=== PATIENT | female | born 1940 | race Caucasian/White ===

== ENCOUNTER → 2023-09-13 | Outpatient (CLI) | payer MEDICARE, SELFPAY ==
--- NOTE | 2023-09-13 17:40 | CT_ITS ---
CT BILATERAL LOWER EXTREMITY WITH 3-D IMAGING CLINICAL INDICATION: OSTEOARTHRITIS / HAYDER PROTOCOL PREP FOR RIGHT HIP REPLACEMENT TECHNIQUE: Axial CT images of the bilateral lower extremity (including bilateral hips and bilateral knees), and was performed without IV contrast material. Coronal and sagittal reformats were provided. RADIATION DOSAGE (If Supplied By Facility): CTDIvol = ( 13.74 ) mGy, DLP = ( 772.95 ) mGycm COMPARISON: No relevant prior comparison study available FINDINGS: Bones: There is severe degenerative disc disease at L4-5 with grade I anterolisthesis of L4 on L5. There is moderate to severe degenerative arthrosis of the right hip joint with joint space narrowing, marginal osteophyte formation, and subchondral cyst formation. There is mild degenerative arthrosis of the left hip joint with small subchondral cyst formation in the left acetabulum. There is mild pubic symphysis arthrosis. Unremarkable knee joints bilaterally. Osseous structures are intact without evidence of fracture or dislocation. No lytic or blastic osseous masses. Soft Tissues: There is mild chronic sigmoid diverticulosis without acute diverticulitis. The deep soft tissue structures are otherwise unremarkable. The superficial soft tissues are unremarkable without evidence of edema, hematoma, or foreign body. CT/Extremity Lower without Contra IMPRESSION: Moderate to severe degenerative arthrosis of the right hip joint. Mild degenerative arthrosis of the left hip joint. Electronically Signed: Juan Jose Chavez MD at 8:17 EDT ,
== END | disposition home or self-care (01) ==
LOC: CT 17:37
PROVIDERS: PCP Family Medicine; Visit Provider Student in an Organized Health Care Education/Training Program
DX: M16.11 Unilateral primary osteoarthritis, right hip (principal)
CPT/HCPCS: 73700

== ENCOUNTER 2023-09-28 14:07 | Observation (INO) | payer MEDICARE, SELFPAY ==
--- NOTE | 2023-09-05 10:25 | EKG12_ITS ---
Test Reason : PRE OP Blood Pressure : / mmHG Vent. Rate : 062 BPM Atrial Rate : 062 BPM P-R Int : 144 ms QRS Dur : 072 ms QT Int : 380 ms P-R-T Axes : 011 -07 037 degrees QTc Int : 385 ms Normal sinus rhythm Normal ECG Confirmed by Lalo Osullivan ([id number]), international editorial producer JENNIFER JONES ([id number]) on 09/06/2023 5:49:28 AM Referred By: Radha Plunkett Confirmed By:Lalo Osullivan
[2023-09-05 10:33] LABS: Absolute Lymphocyte Count 2.11 X10^3/uL (0.83-4.51); Absolute Neutrophil Count 3.1 X10^3/uL (2.0-7.7); Basophil# 0.08 X10^3/uL; Basophil% 1.3 % (0-1); Eosinophil# 0.15 X10^3/uL; Eosinophils% 2.5 % (0-5); Hematocrit 44.9 % (37-47); Hemoglobin 13.8 g/dL (12.0-15.0); Lymphocyte # 2.11 X10^3/ul (0.83-4.51); Lymphocyte % 35.4 % (19-41); Mean Corp Hgb Conc 30.7 g/dL (32-36); Mean Corpuscular Hgb 28.5 pg (27.0-32.0); Mean Corpuscular Volume 92.8 fL (81-99); Mean Platelet Vol. 10.5 fl (6.2-12.0); Monocyte# 0.56 X10^3/uL; Monocyte% 9.4 % (0-10); NRBC Flagged by Analyzer 0 % (0-5); Neutrophil # 3.05 X10^3/uL (2.7-7.7); Neutrophil % 51.2 % (47-70); Platelet Count 201 K/mm3 (150-450); RBC Distribution Width CV 12.3 % (11.6-14.6); RBC Distribution Width SD 41.7 fl (35.1-43.9); Red Blood Count 4.84 M/mm3 (4.2-5.4)
[2023-09-05 14:44] LABS: Magnesium 2.4 mg/dL (1.6-2.6)
[2023-09-05 14:45] LABS: Albumin, Serum 3.5 g/dL (3.2-5.0); Anion Gap 2 (5-15); BUN 21 mg/dL (7-18); BUN/Creat Ratio 17.9 RATIO (10-20); Calcium,Total 9.8 mg/dL (8.5-10.1); Chloride 109 mmol/L (98-107); Creatinine, Serum 1.17 mg/dL (0.55-1.02); EST Glomerular Filtration Rate 47 mL/min (>60); Est Glom Filt Rate - Afr Amer 57 mL/min (>60); Glucose 102 mg/dL (74-106); Potassium 4.4 mmol/L (3.5-5.1); Sodium Level 139 mmol/L (136-145)
--- NOTE | 2023-09-19 15:51 | CASEMGMT ---
Social Work - Discharge Planning Received call from patient asking to speak to social media specialist about discharge planning after hip replacement surgery in September. Patient stated on message that patient lives alone and will need to go somewhere for in-house medical care. Returned call to patient at [phone]. Message left for patient to call this commercial real estate underwriter back to further discuss. -NILES Mcnamara
--- NOTE | 2023-09-20 11:18 | CASEMGMT ---
Social Work - Discharge Planning Received call back from patient regarding discharge planning. Patient reports to have 3 friends who ave had hip replacements and all 3 have informed patient that patient will not be able to be alone the first couple of weeks post-op. Patient reports immediately called the insurance to find out about options and was told to have benefits for SNF rehab, but that hospital must set this up. Patient reports has looked around at area SNF's and wants to be in [facility], as this will be the closest for local family to be involved. Patient reports to have a son, who is involved, but works 10.5 hours days, so will not be available to be at home and help patient. Patient continued to emphasize that does not have anyone at home to help patient in the days or weeks following surgery. Educated patient that SNF arrangements cannot be done until after the procedure, as will need clinical information including PT/OT evaluate to determine level of care need. SNF choices, for short term rehab: 1. [facility] 2. [facility]. Plan: Care Management team to follow and assist as needed. Patient reports slated for surgery on 09.28.23. -NILES Mcnamara
--- NOTE | 2023-09-20 12:11 | CASEMGMT ---
Care Management - Discharge Planning Called [facility] and spoke with Linda in surgical scheduling to update to conversation with patient regarding discharge planning. Transferred to clinical coordinators at same office and left voice message of update, as well as this feature writer's name/number should they have questions. Plan: Patient's intended plan/goals for care at discharge - short term SNF for rehab. Choices identified: 1. [facility], 2. [facility]. -NILES Mcnamara
[2023-09-28] VITALS (16 sets, daily range): BP systolic 100–163; BP diastolic 50–97; PULSE 59–83; RESP 14–18; TEMP 35.7–36.6; O2SAT 94–100; BMI 24.9
[2023-09-28] MEDS: Gabapentin 600 MG Tablet PO (11:38)
[2023-09-28] MEDS: Magnesium 1 GM over 15 mins IV (11:38)
[2023-09-28] MEDS: Lactated Ringers 1,000 ML 999 ML IV ×2 (11:38→14:00)
[2023-09-28] MEDS: Acetaminophen 500 MG Tablet 1000 MG PO ×2 (11:38→21:31)
[2023-09-28] MEDS: Cefazolin 2 GM in 0.9% Normal Saline (100mL Bag) 100 ML IV (11:52)
[2023-09-28] MEDS: TXA 1000mg in NS100 100ml (IVPB at Incision) 660 MG IV (12:10)
[2023-09-28 13:13] LABS: Bedside Glucose 110 mg/dL (74-106)
[2023-09-28] MEDS: TXA 1000mg in NS100 100ml (IVPB at Closure) 660 MG IV (13:20)
[2023-09-28] MEDS: Joint Pain Solution (NO KETOROLAC) IV (13:45)
--- NOTE | 2023-09-28 14:05 | HIP_PTH ---
PATIENT: SHWETHA CLAYTON LOC: MS3 U#:[id number] AGE/SX: 83/F ROOM: KY318 RE09/28/[address]: Dr. Anirudh Givens DO : 1940 BED: 1 DIS: 09/30/2023 SPEC #: [id number] RECD: 09/29/23 08:32 STATUS: STACY ANDREWS #: [id number] MARYJO: 09/28/23 14:[address]: Anirudh Givens DEPT: SURGICAL PATHOLOGY RECD BY: Honey Alfaro ENTERED: 09/29/23 10:07 SP TYPE: TOTAL HIP OTHR DR: DO Dr. Radha Lizama MD Dr. Prakash Chand, MD Tissues: Hip, NOS Procedures: Decalcification bone/plaque Surgery Specimen Level IV HEADER OPERATION: ERAS, total hip replacement PRE-OP DIAGNOSIS: Unilateral primary osteoarthritis, right hip, pain right hip TISSUE SUBMITTED: Right hip bone and tissue MICROSCOPIC DIAGNOSIS Right hip bone and soft tissue, total hip replacement/resection: Femoral head with degenerative osteoarthritic changes. CHARY: 10/04/23 MICROSCOPIC DESCRIPTION Slides are reviewed. GROSS DESCRIPTION Received is one container labeled with the patient's name and designated bone and soft tissue right hip. The specimen consists of a roldan femoral head and detached fragments of bone and bone reamings. Bone fragments and reamings measure 7.0 x 5.0 x 1.0cm. The femoral head measures 4.5 x 4.5 x 4.5 cm. The articular surface displays prominent osteophyte formation, eburnation and bone erosion. Supervisor Cell Maintenance sections are submitted in three cassettes as follows: 1&2 - femoral head, 3 - bone reamings. / 09/29/23 TC:5 CPT: 12327, 65222
--- NOTE | 2023-09-28 14:08 | PCM.OPRPT ---
Report of Operation Date of Procedure: 09/28/23 Description of Surgical Findings:: Preoperative diagnosis: Right hip primary osteoarthritis Postoperative diagnosis: Right hip primary osteoarthritis Procedure: Robotic arm assisted right total hip arthroplasty Surgeon: Anirudh Givens DO Manager Nc: Zuleyma Alcaraz PA-C Anesthesia: General endotracheal Marine Meteorologist: Ricki Capps CRNA Complications: None apparent Drains: None Estimated blood loss: 200 cc Urinary output: none recorded IV fluids: 1200 cc crystalloid Specimens: Femoral head Surgical implants: [place] Accolade two 127 degree neck angle hip stem size # 5, Biolox delta ceramic V 40 femoral head 36 mm outer diameter + 0 mm neck length, [place] Trident X3 standard polyethylene insert, Trident 2 TriTanium cluster hole acetabular shell 50 mm diameter Indications: This is an 83-year-old female seen in the outpatient setting for right hip pain. X-rays revealed severe right hip osteoarthritis. She failed oral cnur-knd-dbpfeer analgesics including NSAIDs and Tylenol, activity modification. I recommended surgical intervention the form of right total hip arthroplasty. I reviewed the procedure with the patient, its risk, benefits, alternatives. Risks included but were not limited to bleeding, infection, loss of life or limb, risk of anesthesia, neurovascular injury, persistent pain, instability, need for additional surgery, failure of orthopedic hardware, loosening, osteolysis, need for assistive devices long-term, leg length discrepancy. Patient expressed understanding wish to proceed with surgery. Description of procedure: I greeted the patient in same-day surgery holding area the day of surgery. He was identified by name, medical record number, and date of . All questions were answered to patient satisfaction. The operative extremity was marked with a surgical marker. Informed consent was confirmed with the patient. At time of her procedure, patient was brought the operative suite and positioned supine a sterile operating table. General anesthesia was induced and endotracheal tube placed. Patient was then positioned in a lateral decubitus position with the right side up. An axillary roll was placed under the patient's left axilla. The left fibular head was free. We then prepped and draped the right lower extremity in normal, sterile orthopedic fashion. Prior to the procedure, the [facility] plan was reviewed and appeared appropriate based on the patient's CT scan and anatomy. We performed a timeout with all parties in attendance in agreement with the side, site, and operation to be performed. No concerns were voiced and would like to proceed. 1 g TXA IV as well as 2 g Ancef was administered prior to the incision by anesthesia staff. 1 g TXA IV was administered at time of closure additionally. I first elected to place our pelvic array with a curvilinear incision over the iliac crest just posterior to the ASIS. I bluntly dissected down the level of the periosteum. I then drilled 3 intracortical pins with excellent purchase. Pelvic array was then assembled and positioned appropriately. I then turned my attention to the hip. A standard posterior lateral incision was made curvilinear over the posterior lateral hip, centered on the tip of the greater trochanter. Full-thickness skin incision was made, approximately 12 cm in length. I sharply dissected down the level of the fascia becki. Fascia becki was then incised in line with the incision. I bluntly dissected through the raphae of the gluteus maggie. Femoral checkpoint was placed at this point. We then registered her femoral anatomy prior to dislocating the hip. I then internally rotated the hip. Limited gluteal bursectomy was performed to identify the short external rotators. A Cobra retractor was placed in his gluteus medius. Short external rotators were taken down with Bovie cautery and tagged for later repair with #2 Ethibond suture. This identified the underlying capsule. A hockey-stick shaped capsulotomy was made over the femoral neck carried posteriorly to the acetabular labrum. Labrum was released and the hip was dislocated. I then marked a standard femoral neck cut 1 fingerbreadth above the lesser trochanter. Sagittal saw was used to carefully cut the femoral neck. Femoral head was removed and examined and appeared benign. It was sent to pathology per hospital policy. I then turned my attention to the acetabulum. Cobra retractors were placed anterior and posteriorly. Self-retaining retractor was placed superiorly. Acetabular labrum was excised with a long handled knife. Acetabular pulmonary was excised with Bovie cautery. Hemostasis was excellent at this point. I then registered the acetabulum with the [employer] robot successfully. I then brought in the Darrell robot with the acetabular reaming arm to a size 50. This was reamed and the planned position to the planned depth. Reamer was then removed. There was excellent bleeding bone at the base and excellent remaining anterior posterior vigil of the acetabulum. 50 mm acetabular component was selected for and attached to the retail assistant arm of the robot. I placed the acetabular component near planned position before attaching to the robot. The robot then held the cuff in position while I impacted it to an appropriate depth. The acetabular cup was then removed from the robotic arm. It had excellent rim fit. I then selected a standard polyethylene liner and impacted this per woodworking machine setter recommendations. I then turned my attention to the femur. Box chisel was then utilized to gain access to the femoral canal. Canal finder was placed. Sequential broaches were used and press-fit manner. A final size 5 achieved excellent vertical and rotational stability. We then trialed with a 127 degree hip stem as templated. A standard length neck trial was used. This trial achieved excellent stability and reproduction of leg lengths. Trials were then removed. We copiously irrigated the wound with normal saline solution, Betadine solution, and irrisept solution. A size 3 stem was then impacted with excellent fixation. Final head was then impacted over clean, dry [place]ley taper neck. Final reduction was performed. A posterior capsular repair was performed with #2 Ethibond suture and bone tunnels, as well as the short external rotator repair. Femoral checkpoint was removed. Pelvic array pins were removed. IT band was closed watertight with #1 strata fix suture. Deeper fascial layers were closed with 0 Vicryl suture in interrupted fashion. Subcutaneous layers were reapproximated with 2-0 Vicryl suture and skin reapproximated with running subcuticular 3-0 strata fix and skin glue. Pelvic array incision was closed with buried 2-0 Vicryl suture and skin glue.. A silver dressing was applied. Patient tolerated procedure well without complication. He was positioned back in the supine position on his hospital bed. He was transferred to PACU in stable condition. A pillow was placed between the patient's leg to be present while she is in bed. Need for skilled election assistant: Zuleyma Alcaraz PA-C was critical to the outcome of the case. During the course of the procedure the physician election assistant played a vital role. Her intimate knowledge of my steps in the procedure aided in safe and expedient completion of the procedure. The PA played a vital role in positioning particularly in obtaining the appropriate positioning. The PA was also vital in the retraction of soft tissues during the exposure and projecting vital structures. The PA was also vital and protecting soft tissues during times of bony cuts. She also played a vital role in closure with my direct supervision. The PA was also important during reduction and dislocation of the joint and trials intraoperatively. Post Operative Plan: Patient will be placed in observation overnight given her age and the fact that she lives at home alone. I suspect patient would benefit from intermediate facility placement due to her limited help at home and advanced age. We will have physical therapy evaluate the patient and begin the process of placement with professor of social work. Weightbearing: Weightbearing as tolerated right lower extremity, posterior hip precautions. Pillows between legs while in bed Antibiotics: Ancef 1 g every 8 hours x 3 doses DVT Prophylaxis: Aspirin 81 mg twice daily to start tomorrow Mcmanus: None Dressing: Maintain silver dressing x 5 days X-Rays: PACU x-rays were reviewed demonstrated well-positioned right total hip arthroplasty implant. Follow-up 2-week x-rays in the office. Follow-up: 2 weeks in my office as scheduled
--- NOTE | 2023-09-28 14:15 | RAD_ITS ---
STUDY: X-RAY - PELVIS AND RIGHT HIP REASON FOR EXAM: Female, 83 years old. Post Op -- AP both hips on single ed/lateral of op hip PACU TECHNIQUE: 2 views of the pelvis and hip. COMPARISON: None. FINDINGS: There is a non-specific bowel gas pattern. Normal visualized soft tissue structures. Total hip arthroplasty on the right. Normal bilateral iliac wings, sacroiliac joints and visualized sacrum. Normal bilateral superior and inferior pubic rami. Normal pubic symphysis. Normal bilateral ischial tuberosities. Normal visualized femoral head. Normal acetabulum. Normal hip joint. RAD/Hip Min 2 Views (Portable) IMPRESSION: Right total hip arthroplasty Electronically Signed: Emir Pagan MD at 17:18 EDT ,
[2023-09-28 14:41] LABS: Bedside Glucose 218 mg/dL (74-106)
[2023-09-28] MEDS: Insulin Lispro 100 UNIT/ML INSULN.PEN SC ×2 (14:50→21:31)
[2023-09-28] MEDS: Lactated Ringers 1,000 ML 125 ML IV (15:01)
--- NOTE | 2023-09-28 19:36 | CON.PCM.HO_ITS ---
Assessment & Plan Assessment/Plan (1) Primary osteoarthritis: PLAN: Plan 83-year-old female is being admitted under orthopedic surgery after elective right hip surgery. Medicine consulted for perioperative management 1. Right hip primary osteoarthritis status post robotic assisted right total hip arthroplasty. Patient is doing good, had surgery completed in afternoon. Pain control, and incentive spirometry. PT and OT. DVT prophylaxis as per discretion of orthopedic surgery. Bladder scan every 4 hourly and if needed a straight cath. Stool softener/laxative as needed for constipation. To monitor CBC and BMP tomorrow morning 2. Hypertension: Blood pressure is in normal range. On lisinopril 10 mg daily continued. Twelve-lead EKG normal sinus rhythm. 3. Diabetes mellitus type 2: Most recent, A1c 6.0 on 09/05/2023. Glucose well- controlled. Hold glipizide. Accu-Chek before meals and at bedtime insulin coverage Humalog sliding scale. 4. DVT prophylaxis: As per discretion of orthopedic surgeon bilateral SCDs. Aspirin 81 mg twice daily ordered by orthopedic surgeon. HPI Consult Data Date of Consult: 09/28/23 HPI Narrative Reason for Consultation: Perioperative medical management HPI Narrative: SHWETHA CLAYTON, is a 83 F who was admitted after robotic arm elective right hip total hip arthroplasty. Patient has primary right hip osteoarthritis for about 10 years failed medical management. Her pain is well-controlled. She had a bowel movement in the morning today prior to surgery. She does not have Mcmanus catheter. Denies chest pain shortness of breath or any acute illness or fever. Patient denies chronic heart disease including CAD CHF A-fib or valvular heart disease. Denies chronic lung disease or smoking history. Patient has diabetes mellitus type 2 on glipizide 2.5 mg daily and last A1c 6.0 on 09/05/2023. History of hypertension on lisinopril 10 mg daily Patient has chronic diverticulosis, on calcium carbonate and folic acid. Twelve-lead EKG reviewed and is normal sinus rhythm 62 bpm. QTc 385 ms [facility] Medical History Ambulates with cane Arthritis Diverticulosis History of stress test (~2006) Leg cramps Non-smoker Post-menopausal Wears glasses Home Medications calcium carbonate 600 mg-vitamin D3 5 mcg (200 unit) tablet (Calcium 600 + D(3)) 1 tab PO BID 08/30/23 [History Last Taken 09/27/23] cinnamon bark 500 mg capsule (Cinnamon) 1,000 mg PO BID 08/30/23 [History Last Taken 09/27/23] coenzyme Q10 200 mg capsule (Co Q-10) 200 mg PO DAILY 08/30/23 [History Last Taken 09/27/23] folic acid 400 mcg tablet 400 mcg PO DAILY 08/30/23 [History Last Taken 09/27/23] glipizide 2.5 mg tablet, extended release 24 hr 2.5 mg PO DAILY 08/30/23 [History Last Taken 09/27/23] lisinopril 10 mg tablet 10 mg PO DAILY 08/30/23 [History Last Taken 09/28/23 10:00] omega-3 339 mg-dha and epa 314 mg-fish and krill oil 500 mg capsule (Jo rodriguez 4-in-1) 1 cap PO DAILY 08/30/23 [History Last Taken 09/27/23] Allergy/AdvReac Type Severity Reaction Status Date / Time Iodinated Contrast Media Allergy Severe Rash Verified 09/28/23 12:04 iodine Allergy Severe Rash Verified 09/28/23 12:04 naproxen Allergy Severe Anaphylaxis Verified 09/28/23 12:04 Sulfa (Sulfonamide Allergy Severe Anaphylaxis Verified 09/28/23 12:04 Antibiotics) triamcinolone [From Kenalog] Allergy Severe Anaphylaxis Verified 09/28/23 12:04 egg Allergy Intermediate Rash Verified 09/28/23 12:04 Surgical History History of ankle surgery (~1959) History of breast surgery (~2002) History of cataract extraction with lens replacement (~2021) History of cholecystectomy (~2006) History of D&C (~1974) History of hand surgery Social History Smoking Status: Never smoker ROS ROS Narrative Constitutional: denies chronic fatigue and weakness. No fever. HEENT: Reports systems reviewed and no addt'l complaints, except as documented Respiratory/Chest: No COPD or smoking history. No acute shortness of breath or respiratory distress or wheezing. CVS: Denies acute chest pain pressure or tightness. No chronic cardiac disease Gastrointestinal: Denies coffee ground emesis, hematemesis or vomiting Genitourinary: Denies burning urination or new urinary tract symptoms Musculoskeletal: Denies acute joint pain or limited range of motion. No acute injury. Right primary osteoarthritis Neurologic: Denies seizure-like symptoms. No acute strokelike symptoms skin: No ulcer. No rash Endocrinology: Reports systems reviewed and no addt'l complaints, except as documented Hematologic/Lymphatic: Reports systems reviewed and no addt'l complaints, except as documented Rest 14 ROS are negative except as mentioned in HPI Physical Exam Narrative General: Alert, Oriented x3, Cooperative HEENT: Atraumatic, PERRLA, EOMI, Normocephalic Oral: Oral mucosa moist no Gingival or Mucosal Lesions/ Ulcerations Neck: Supple, No JVD, Negative Carotid Bruits Chest wall/Lungs: Air entry equal in bilateral lung bases. No crepitation/rhonchi Cardiovascular: Regular rate, Regular Rhythm, Normal S1, Normal S2, No M/G/R Abdomen: Bowel Sounds Present, Soft, Non Tender, Non-Distended : No dysuria. No renal angle tenderness. No suprapubic tenderness. Extremities: No edema, Capillary Refill Less than 3 Seconds Skin: Right hip surgical dressing is dry. No hematoma or bruise noticed. Musculoskeletal: Mild tenderness on deep palpation expected after surgery. ROM not evaluated due to surgery to Neurological: Cranial nerves II-XII grossly intact, DTR 2+/4. No acute focal n eurological deficit. Psych/Mental Status: Normal Affect, Appropriate. Lab / Micro Data 09/05/23 10:12 09/05/23 10:12 Labs: Laboratory Results - last 24 hr 09/28/23 11:26: POC Glucose 110 H 09/28/23 14:16: POC Glucose 218 H Imaging Radiology Impression Hip X-Ray 09/28/23 14:15 IMPRESSION: Right total hip arthroplasty Electronically Signed: Emir Pagan MD at 17:18 EDT , Charges/Coding Visit Charges Inpatient E&M: 24075 Init Hosp L3
[2023-09-28] MEDS: Cefazolin 1 GM/50 ML BAG IV (20:00)
[2023-09-28] MEDS: Aspirin 81 MG TAB.CHEW PO (21:31)
[2023-09-28] MEDS: Senna/Docusate Sodium 1 Tablet 2 TABLET PO (21:31)
[2023-09-28] MEDS: Ondansetron 4 MG/2 ML Vial IV (21:34)
[2023-09-28 21:59] LABS: Bedside Glucose 210 mg/dL (74-106)
[2023-09-29 00:56] VITALS: BP 145/58; PULSE 70; RESP 16; TEMP 36.6; O2SAT 100
[2023-09-29] MEDS: Cefazolin 1 GM/50 ML BAG IV (03:54)
[2023-09-29 04:56] VITALS: BP 137/72; PULSE 69; RESP 16; TEMP 36.6; O2SAT 96
[2023-09-29] MEDS: 0.9% Saline Lock 10 ML Syringe IV ×2 (05:28→21:49)
[2023-09-29] MEDS: Acetaminophen 500 MG Tablet 1000 MG PO ×3 (05:28→21:54)
[2023-09-29] MEDS: Insulin Lispro 100 UNIT/ML INSULN.PEN SC ×4 (06:07→21:56)
[2023-09-29 06:28] LABS: Bedside Glucose 199 mg/dL (74-106)
[2023-09-29 07:09] LABS: Hematocrit 37.4 % (37-47); Hemoglobin 12.2 g/dL (12.0-15.0); Mean Corp Hgb Conc 32.6 g/dL (32-36); Mean Corpuscular Hgb 29.8 pg (27.0-32.0); Mean Corpuscular Volume 91.4 fL (81-99); Mean Platelet Vol. 10.6 fl (6.2-12.0); Platelet Count 203 K/mm3 (150-450); RBC Distribution Width CV 12.1 % (11.6-14.6); RBC Distribution Width SD 40.6 fl (35.1-43.9); Red Blood Count 4.09 M/mm3 (4.2-5.4); White Blood Count 13.5 K/mm3 (4.4-11.0)
[2023-09-29 08:00] VITALS: BP 106/58; PULSE 78; RESP 16; TEMP 36.6; O2SAT 98
[2023-09-29 08:07] LABS: Anion Gap 7 (5-15); BUN 22 mg/dL (7-18); BUN/Creat Ratio 19.6 RATIO (10-20); Calcium,Total 8.3 mg/dL (8.5-10.1); Chloride 103 mmol/L (98-107); Creatinine, Serum 1.12 mg/dL (0.55-1.02); EST Glomerular Filtration Rate 49 mL/min (>60); Est Glom Filt Rate - Afr Amer 60 mL/min (>60); Estimated Creatinine Clearance 34.85 ml/min; Glucose 213 mg/dL (74-106); Potassium 4.6 mmol/L (3.5-5.1); Sodium Level 132 mmol/L (136-145)
[2023-09-29] MEDS: Folic Acid 1 MG Tablet 0.5 MG PO (08:23)
[2023-09-29] MEDS: Senna/Docusate Sodium 1 Tablet 2 TABLET PO ×2 (08:23→21:54)
[2023-09-29] MEDS: Aspirin 81 MG TAB.CHEW PO ×2 (08:23→21:53)
--- NOTE | 2023-09-29 10:15 | CASEMGMT ---
PALOMO DALE Assessment: Face to Face with pt for initial transition planning/care coordination assessment. PALOMO DALE introduced self and role at [facility], pt voices understanding and consents to assessment. Pt is A&O x4 and answers all questions appropriately at this time. Pt sitting up in chair in no distress. Pt just finished working with therapy who states pt is contact guard, they plan to work with pt on steps this afternoon. Care providers, pharmacy, and demographics verified/updated. Admitting Dx: R total hip arthroplasty PCP:Kiarra Specialists:beata Givens Preferred Pharmacy: [facility] Insurance: [facility] Medicare Advantage Prescription Benefit: yes LNOK: Norman Barclay, son Living Arrangements: Pt lives alone in a single story home with 5 steps to enter with a rail. Pt reports she was I in ADL's and IADL's at home prior to surgery. Pt states her son can assist but he works 10-11 hours per day and is home by 3pm. She states she has a sister but her sister is caring for her who had a stroke and cannot assist. Pt denies having restorationist members who can assist as they have their own lives. Pt reports she cannot return home and would like to go to [facility] or [facility]. Pt aware her insurance will need to approve this stay. She states she can pay privately if it is $200/day. Transportation: Pt drives self prior to hospitalization but states she has no plan for post surgery. DME:built in shower seat, FWW, cane, BGM with sufficient supply of strips and lancets. HHC/SNF: Denies hx of Pt states no further concerns/needs. Updated SW on pt request to try for SNF, although she may not get approved. Discussed other options with pt. She states she does not want HHC as that is not the best therapy. She states she is scheduled for OP therapy on October 12 at 3:30pm with Sarah Alcazar. CM to follow. Advised pt to ask CM if any further question/concerns/needs arise, voices understanding. Pt Goal: SNF Plan: DEBORAH Gonzales RN, CM
--- NOTE | 2023-09-29 11:07 | CASEMGMT ---
Discharge Planning A list of?SNF providers including quality and resource use data and consistent with the patient's preferred geographic region, medical needs, and insurance network was created in [employer] Guide.? This list was provided to the SW. Chani Silva Discharge Planning Asst.
[2023-09-29 11:36] LABS: Bedside Glucose 288 mg/dL (74-106)
--- NOTE | 2023-09-29 11:44 | PCM.PN.HOSP ---
Reason for Visit Reason for Visit: Diagnoses Primary osteoarthritis, unspecified site (09/28/23) Encounter for other preprocedural examination (09/28/23) Subjective Subjective Patient had right total hip arthroplasty done yesterday morning with Dr. Givens. Medicine consulted postoperatively for medical management. No acute events overnight. Saw patient at the bedside this morning. She was up and walking with a 4-point walker and working with physical therapy. She denied any significant hip pain and was feeling okay with ambulation. She did note she lives alone and despite feeling well she is concerned about going home and would like to go to a nursing facility on discharge. No other acute concerns at this time. Objective Data Objective Data Vital Signs: Vital Signs Temp Pulse Resp BP Pulse Ox O2 Del Method O2 Flow Rate 97.8 F 78 16 106/58 L 98 Room Air 2 09/29/23 08:00 09/29/23 08:00 09/29/23 08:00 09/29/23 08:00 09/29/23 08:00 09/29/23 08:00 09/28/23 20:56 Oxygen Flow Rate (L/min) 2 Oxygen Delivery Method Room Air Weight: 68 kg Body Mass Index (BMI) 24.9 Intake & Output: Intake and Output for Last 24 Hours 09/27/23 09/28/23 09/29/23 23:59 23:59 23:59 Intake Total 2729.92 / 2729.92 249 / 249 Balance 2729.92 / 2729.92 249 / 249 Lab / Micro Data 09/29/23 06:23 09/29/23 06:23 Labs: Laboratory Results - last 24 hr 09/28/23 11:26: POC Glucose 110 H 09/28/23 14:16: POC Glucose 218 H 09/28/23 21:11: POC Glucose 210 H 09/29/23 06:06: POC Glucose 199 H 09/29/23 06:23: WBC 13.5 H, RBC 4.09 L, Hgb 12.2, Hct 37.4, MCV 91.4, MCH 29.8, MCHC 32.6, RDW Std Deviation 40.6, RDW Coeff of Ron 12.1, Plt Count 203, MPV 10.6, Sodium 132 L, Potassium 4.6, Chloride 103, Carbon Dioxide 22.0, Anion Gap 7, BUN 22 H, Creatinine 1.12 H, Estim Creat Clear Calc 34.85, Est GFR (MDRD) Af Amer 60, Est GFR (MDRD) Non-Af 49 L, BUN/Creatinine Ratio 19.6, Glucose 213 H, Calcium 8.3 L 09/29/23 11:16: POC Glucose 288 H Micro: Microbiology 09/05/23 10:12 Swab (Method) Nasal Screen MRSA/MSSA - Final Radiography Diagnostic Testing: Radiology Impression Hip X-Ray 09/28/23 14:15 IMPRESSION: Right total hip arthroplasty Electronically Signed: Emir Pagan MD at 17:18 EDT , Physical Exam Const alert, oriented x3, no apparent distress and average body habitus Constitutional Narrative: Pleasant elderly female, sitting up at edge of bed, conversing normally, in no acute distress. General Appearance: cooperative and comfortable HEENT normocephalic, head/scalp atraumatic, hearing grossly normal bilaterally, nasal mucous membranes and turbinates normal and moist oral mucous membranes Eyes PERRL, EOMs intact bilaterally and conjunctivae normal Neck full ROM Chest inspection of chest normal Resp normal respiratory effort, normal air movement, no use of accessory muscles and clear to auscultation bilaterally Cardio regular rate, regular rhythm, no murmurs and peripheral pulses 2+ throughout GI normal to inspection, nondistended, normoactive bowel sounds, soft to palpation, non-tender and non-distended Back/Spine normal ROM Extremity Extremity Narrative: Right hip incisional dressing in place, appears clean and dry. Skin no rashes or lesions noted Neuro moves all extremities and no focal motor deficits Speech: speech normal Psych mental status grossly normal Assessment & Plan Assessment/Plan (1) Primary osteoarthritis: QUALIFIERS: Osteoarthritis location: hip Laterality: right Qualified Code(s): M16.11 - Unilateral primary osteoarthritis, right hip (2) Status post right hip replacement: PLAN: Plan Patient is an 83-year-old female who presented to [facility] on 09/28/2023 for planned right hip replacement. Medicine consulted postoperatively for medical management. 1. Right hip osteoarthritis, acute debility ? Orthopedics primary. S/p right total hip arthroplasty on 09/27. Patient tolerated procedure well, no intraoperative complications. PT/OT/case management following. Patient requesting SNF placement but has fairly good therapy scores, working with case management on possible SNF placement versus home with home health care. Pain control and DVT prophylaxis per orthopedics. 2. Hypertension ? Blood pressure stable during hospitalization. Continue home lisinopril. 3. Type 2 diabetes mellitus ? Home regimen of glipizide 2.5 mg daily. Last A1c 6.0% on 09/05/2023. Blood sugars well-controlled during this admission. Continue sliding scale insulin with meals as needed. DVT prophylaxis: Per orthopedics Total clinical time spent by myself addressing the patient's medical issues, reviewing all the data, and collaborating with patient's care team: 25 minutes. Charges/Coding Visit Charges Inpatient E&M: 02101 [facility] Hosp L1
--- NOTE | 2023-09-29 12:31 | PN.ORTHO_ITS ---
Subjective Subjective Patient seen and examined. She reports some incisional pain controlled with current pain regimen. She denies any numbness or tingling. Denies fevers, chills, nausea vomiting, chest pain or shortness of breath. She has been ambulating with a front wheel walker with assistance. Patient expresses concern regarding going home. She expressed understanding that she may not qualify for SNF and is considering home health care options. Objective Data Objective Data Vital Signs: Vital Signs Temp Pulse Resp BP Pulse Ox O2 Del Method O2 Flow Rate 97.8 F 78 16 106/58 L 98 Room Air 2 09/29/23 08:00 09/29/23 08:00 09/29/23 08:00 09/29/23 08:00 09/29/23 08:00 09/29/23 08:00 09/28/23 20:56 Oxygen Flow Rate (L/min) 2 Oxygen Delivery Method Room Air Weight: 149 lb 14.629 oz Body Mass Index (BMI) 24.9 Intake & Output: Intake and Output for Last 24 Hours 09/27/23 09/28/23 09/29/23 23:59 23:59 23:59 Intake Total 2729.92 / 2729.92 249 / 249 Balance 2729.92 / 2729.92 249 / 249 Lab / Micro Data 09/29/23 06:23 09/29/23 06:23 Labs: Laboratory Results - last 24 hr 09/28/23 11:26: POC Glucose 110 H 09/28/23 14:16: POC Glucose 218 H 09/28/23 21:11: POC Glucose 210 H 09/29/23 06:06: POC Glucose 199 H 09/29/23 06:23: WBC 13.5 H, RBC 4.09 L, Hgb 12.2, Hct 37.4, MCV 91.4, MCH 29.8, MCHC 32.6, RDW Std Deviation 40.6, RDW Coeff of Ron 12.1, Plt Count 203, MPV 10.6, Sodium 132 L, Potassium 4.6, Chloride 103, Carbon Dioxide 22.0, Anion Gap 7, BUN 22 H, Creatinine 1.12 H, Estim Creat Clear Calc 34.85, Est GFR (MDRD) Af Amer 60, Est GFR (MDRD) Non-Af 49 L, BUN/Creatinine Ratio 19.6, Glucose 213 H, Calcium 8.3 L 09/29/23 11:16: POC Glucose 288 H Micro: Microbiology 09/05/23 10:12 Swab (Method) Nasal Screen MRSA/MSSA - Final Radiography Diagnostic Testing: Radiology Impression Hip X-Ray 09/28/23 14:15 IMPRESSION: Right total hip arthroplasty Electronically Signed: Emir Pagan MD at 17:18 EDT Reading Location ID and State: [facility] / [place] Tel , Service support , Physical Exam Narrative General - A&Ox3, NAD. VSS/AF Right lower extremity -incisional dressing C/D/I. SILT Sural, Saphenous, SPN, DPN, Tibial N. distributions. DP, PT 2+. BCR. DF, PF, EHL 5/5. No calf TTP. Assessment & Plan Assessment/Plan (1) Primary osteoarthritis: QUALIFIERS: Osteoarthritis location: hip Laterality: right Qualified Code(s): M16.11 - Unilateral primary osteoarthritis, right hip PLAN: POD#1 s/p right total hip arthroplasty - Pain control - Medicine following for medical management, appreciate input - PT/[id number]-uzhy as tolerated right lower extremity, posterior precautions x 6 weeks - DVT PPX -Multimodal with aspirin, SCDs, DIVINA hose, early mobilization - Case management - D/C planning. With patient living alone, SNF is reasonable from my standpoint. She is ambulating well with assistance. I suspect patient will need an additional day of inpatient therapy if home dc is planned.
--- NOTE | 2023-09-29 15:00 | CASEMGMT ---
Social Work SW met with pt to discuss discharge plan. Pt is hopeful to go to SNF. SW discussed therapy evaluations with pt. Pt walking 215ft and able to transfer and complete toileting task at [facility]. SW educated pt that insurance will not approve SNF stay. Discuss other discharge options including home with home health and pt is agreeable to this and states her children have encouraged her to return home as well and will assist as able. RNCM updated. JUNIOR Muse
--- NOTE | 2023-09-29 15:53 | CASEMGMT ---
Met with patient to complete SHARMA form. SHARMA form explained to patient who voiced understanding and signed form. Original form placed in pt?s chart and copy provided to?patient. Chani Silva, Discharge Planning Asst
--- NOTE | 2023-09-29 15:58 | CASEMGMT ---
Addendum entered by Arcelia Zeng 09/29/23 16:35: Received tc from Ashleigh at [facility], they will see pt on Monday. PALOMO DALE updated pt, placed on dc instructions. Green sheet on chart. Addendum entered by Arcelia Zeng 09/29/23 16:15: Received message back that [facility] cannot accept pt. TC to the agency, Lauren states they do not service [place]. PALOMO DALE into pt room, she has chosen [facility] first then [facility]. TC to [facility], spoke with Ashleigh, referral made. She will call back with answer and if this PALOMO DALE does not answer, she will call [phone] and leave a message for PALOMO DALE community relations officer tomorrow. Original Note: Pt worked with therapy on steps and just finished. PALOMO DALE into pt room, pt now would like [facility]. Pt states her dtr worked for [facility] and she would like this agency. [facility]erral sent [facility] at [facility] time. Pt provided with a HH list created by dc assistant librarian in case this agency is unable to accept. Pt to view and have a back up plan of 3 agencies. Pt states that her son was in today and visit and they will make it work at home.
[2023-09-29 16:21] VITALS: BP 93/65; PULSE 70; RESP 18; TEMP 36.8; O2SAT 98
[2023-09-29 17:23] LABS: Bedside Glucose 252 mg/dL (74-106)
[2023-09-29 20:26] VITALS: BP 120/54; PULSE 79; RESP 16; TEMP 36.3; O2SAT 97
[2023-09-29] MEDS: Ondansetron 4 MG/2 ML Vial IV (21:49)
[2023-09-29 22:04] LABS: Bedside Glucose 238 mg/dL (74-106)
[2023-09-29 23:45] VITALS: BP 136/64; PULSE 78; RESP 20; TEMP 37.1; O2SAT 93
[2023-09-30 04:12] VITALS: BP 138/59; PULSE 78; RESP 18; TEMP 37.1; O2SAT 96
[2023-09-30] MEDS: Acetaminophen 500 MG Tablet 1000 MG PO ×2 (06:00→13:43)
[2023-09-30 06:03] LABS: Hemoglobin 11.5 g/dL (12.0-15.0); Mean Corp Hgb Conc 32.9 g/dL (32-36); Mean Corpuscular Hgb 29.3 pg (27.0-32.0); Mean Corpuscular Volume 89.1 fL (81-99); Platelet Count 169 K/mm3 (150-450); RBC Distribution Width CV 12.1 % (11.6-14.6); RBC Distribution Width SD 39.6 fl (35.1-43.9); Red Blood Count 3.93 M/mm3 (4.2-5.4); White Blood Count 12.9 K/mm3 (4.4-11.0)
[2023-09-30 06:24] LABS: Bedside Glucose 231 mg/dL (74-106)
[2023-09-30] MEDS: Insulin Lispro 100 UNIT/ML INSULN.PEN SC ×2 (06:32→11:56)
[2023-09-30 08:01] VITALS: O2SAT 90
--- NOTE | 2023-09-30 09:24 | PCM.PN.HOSP ---
Reason for Visit Reason for Visit: Diagnoses Unilateral primary osteoarthritis, right hip (09/28/23) Primary osteoarthritis, unspecified site (09/28/23) Encounter for other preprocedural examination (09/28/23) Presence of right artificial hip joint (09/28/23) Subjective Subjective Saw patient at bedside this morning. Patient was upset this morning because after being given a suppository she had 4 episodes of diarrhea. She otherwise states her hip pain is slightly worse than yesterday. States that Tylenol and Mobic have been helping her pain. She would prefer not to take any opiates for the pain if possible. Patient is planning for discharge home today with home health care. Objective Data Objective Data Vital Signs: Vital Signs Temp Pulse Resp BP Pulse Ox O2 Del Method O2 Flow Rate 98.7 F 78 18 138/59 H 90 Room Air 2 09/30/23 04:12 09/30/23 04:12 09/30/23 04:12 09/30/23 04:12 09/30/23 08:01 09/30/23 08:01 09/29/23 10:00 Oxygen Flow Rate (L/min) 2 Oxygen Delivery Method Room Air Weight: 68 kg Body Mass Index (BMI) 24.9 Intake & Output: Intake and Output for Last 24 Hours 09/28/23 09/29/23 09/30/23 23:59 23:59 23:59 Intake Total 2729.92 / 2729.92 1948 300 / 300 Balance 2729.92 / 2729.92 1948 300 / 300 Lab / Micro Data 09/30/23 05:36 09/29/23 06:23 Labs: Laboratory Results - last 24 hr 09/29/23 11:16: POC Glucose 288 H 09/29/23 16:57: POC Glucose 252 H 09/29/23 21:45: POC Glucose 238 H 09/30/23 05:36: WBC 12.9 H, RBC 3.93 L, Hgb 11.5 L, Hct 35.0 L, MCV 89.1, MCH 29.3, MCHC 32.9, RDW Std Deviation 39.6, RDW Coeff of Ron 12.1, Plt Count 169, MPV 11.0 09/30/23 06:03: POC Glucose 231 H Micro: Microbiology 09/05/23 10:12 Swab (Method) Nasal Screen MRSA/MSSA - Final Physical Exam Const alert, oriented x3, no apparent distress and average body habitus Constitutional Narrative: Elderly female, laying in bed, conversing normally, in no acute distress. General Appearance: cooperative and comfortable HEENT normocephalic, head/scalp atraumatic, hearing grossly normal bilaterally, nasal mucous membranes and turbinates normal and moist oral mucous membranes Eyes PERRL, EOMs intact bilaterally and conjunctivae normal Neck full ROM Chest inspection of chest normal Resp normal respiratory effort, normal air movement, no use of accessory muscles and clear to auscultation bilaterally Cardio regular rate, regular rhythm, no murmurs and peripheral pulses 2+ throughout GI normal to inspection, nondistended, normoactive bowel sounds, soft to palpation, non-tender and non-distended Back/Spine normal ROM Extremity Extremity Narrative: Right hip incisional dressing in place, appears clean and dry. Skin no rashes or lesions noted Neuro moves all extremities and no focal motor deficits Speech: speech normal Psych mental status grossly normal Assessment & Plan Assessment/Plan (1) Primary osteoarthritis: QUALIFIERS: Osteoarthritis location: hip Laterality: right Qualified Code(s): M16.11 - Unilateral primary osteoarthritis, right hip (2) Status post right hip replacement: PLAN: Plan Patient is an 83-year-old female who presented to [facility] on 09/28/2023 for planned right hip replacement. Medicine consulted postoperatively for medical management. 1. Right hip osteoarthritis, acute debility ? Orthopedics primary. S/p right total hip arthroplasty on 09/27. Patient tolerated procedure well, no intraoperative complications. PT/OT/case management following. Planning for discharge home with home health care today. Pain control with scheduled Tylenol and Mobic. DVT prophylaxis with baby aspirin twice daily per orthopedics. 2. Hypertension ? Blood pressure stable during hospitalization. Continue home lisinopril. 3. Type 2 diabetes mellitus ? Home regimen of glipizide 2.5 mg daily. Last A1c 6.0% on 09/05/2023. Blood sugars well-controlled during this admission. Continue sliding scale insulin with meals as needed. DVT prophylaxis: Aspirin 81 mg twice daily Total clinical time spent by myself addressing the patient's medical issues, reviewing all the data, and collaborating with patient's care team: 25 minutes. Charges/Coding Visit Charges Inpatient E&M: 81420 [facility] Hosp L1
[2023-09-30] MEDS: Aspirin 81 MG TAB.CHEW PO (09:26)
[2023-09-30] MEDS: Folic Acid 1 MG Tablet 0.5 MG PO (09:26)
[2023-09-30] MEDS: Meloxicam 7.5 MG Tablet PO (09:26)
[2023-09-30 10:00] VITALS: BP 117/54; PULSE 79; RESP 13; TEMP 36.7; O2SAT 95
--- NOTE | 2023-09-30 12:18 | DS.PCM_ITS ---
Providers Date of Admission: 09/28/23 Primary Care Physician: Dr. Radha Plunkett MD Consultations 09/28/23 14:06 Consult: Hospitalist Routine Consulting Provider: Walker Gipson Reason for Consult: Post op R total hip medical management EMERGENT Consult: No MD Notified: Yes Date Notified: 09/28/23 Time Notified: 16:53 Method of Notification: Text Reason For Visit: RIGHT TOTAL HIP ARTHROPLASTY Diagnosis Discharge Diagnosis (1) Primary osteoarthritis: Status: Acute Code(s): M19.91 - Primary osteoarthritis, unspecified site Qualifiers: Osteoarthritis location: hip Laterality: right Qualified Code(s): M16.11 - Unilateral primary osteoarthritis, right hip Plan: POD#2 s/p right total hip arthroplasty - Pain control - Medicine following for medical management, appreciate input - PT/DF-xsxzeu-ymbe as tolerated right lower extremity, posterior precautions x 6 weeks - DVT PPX -Multimodal with aspirin, SCDs, DIVINA hose, early mobilization -Patient doing well. Plan for discharge home today with home health care, sc heduled to see the patient tomorrow. -Follow-up in 2 weeks for staple removal and x-rays as previously scheduled. (2) Status post right hip replacement: Status: Acute Code(s): Z96.641 - Presence of right artificial hip joint Medications at Discharge Home Medications calcium carbonate 600 mg-vitamin D3 5 mcg (200 unit) tablet (Calcium 600 + D(3)) 1 tab PO BID 08/30/23 cinnamon bark 500 mg capsule (Cinnamon) 1,000 mg PO BID 08/30/23 coenzyme Q10 200 mg capsule (Co Q-10) 200 mg PO DAILY 08/30/23 folic acid 400 mcg tablet 400 mcg PO DAILY 08/30/23 glipizide 2.5 mg tablet, extended release 24 hr 2.5 mg PO DAILY 08/30/23 lisinopril 10 mg tablet 10 mg PO DAILY 08/30/23 omega-3 339 mg-dha and epa 314 mg-fish and krill oil 500 mg capsule (MegaRed Advanced 4-in-1) 1 cap PO DAILY 08/30/23 acetaminophen 500 mg tablet 1,000 mg (2 x 500 mg) PO Q8 30 days #180 tabs 09/30/23 aspirin 81 mg chewable tablet 81 mg PO BID 28 days #56 tabs 09/30/23 meloxicam 7.5 mg tablet 7.5 mg PO BID 30 days #60 tabs 09/30/23 oxycodone 5 mg tablet 5 mg PO Q4H PRN PRN pain 5-10 7 days #28 tabs 09/30/23 Hospital Course Summary of Care Provided Minutes Spent on Discharge: 15 Hospital Course: Patient underwent uncomplicated right total hip arthroplasty with robotic arm assistance. She was placed in observation overnight for medical monitoring and early convalescence. Internal medicine was consulted for medical management throughout her stay. No medical or surgical complications were encountered. She progressed well with physical and occupational therapies and was able to be discharged to home with home health care on postoperative day #2. Physical Exam Narrative General - A&Ox3, NAD. VSS/AF Right lower extremity -incisional dressing C/D/I. SILT Sural, Saphenous, SPN, DPN, Tibial N. distributions. DP, PT 2+. BCR. DF, PF, EHL 5/5. No calf TTP. Weight / BMI Weight Weight: 149 lb 14.629 oz Body Mass Index (BMI) 24.9 ABG / Lab / Microbiology Data 09/30/23 05:36 09/29/23 06:23 Laboratory: Laboratory Results - last 24 hr 09/29/23 16:57: POC Glucose 252 H 09/29/23 21:45: POC Glucose 238 H 09/30/23 05:36: WBC 12.9 H, RBC 3.93 L, Hgb 11.5 L, Hct 35.0 L, MCV 89.1, MCH 29.3, MCHC 32.9, RDW Std Deviation 39.6, RDW Coeff of Ron 12.1, Plt Count 169, MPV 11.0 09/30/23 06:03: POC Glucose 231 H Microbiology: Microbiology 09/05/23 10:12 Swab (Method) Nasal Screen MRSA/MSSA - Final Meaningful Use Info Meaningful Use Meaningful Use Diagnoses (Choose all that apply): None applicable Ischemic Stroke Statin Dosing Therapy Reference: STATIN DOSE THERAPY REFERENCE: * Patients > 75 years receive moderate or high dose statin therapy. * Patients 75 years or YOUNGER should receive HIGH intensity statin dose unless contraindicated. You will be required to document reason for non-treatment if statin daily dose does not meet guidelines. HIGH DOSE STATIN THERAPY DAILY Atorvastatin > than or = to 40 mg Rosuvastatin > than or = to 20 mg Amlodipine + Atorvastatin > than or = to 2.5/40 mg Ezetimibe + Simvastatin 10/80 mg Simvastatin 80mg Discharge Plan Admission Admit Date/Time: 09/28/23 14:07 Primary Reason for Your Visit: Right total hip arthroplasty Attending Provider: Anirudh Givens Primary Care Provider: Radha Plunkett Consulting Providers: Walker Gipson; Josr Araiza Instructions Additional Instructions / Restrictions: Follow preprinted instructions from your surgeon's office Discharge Orders/Prescriptions Prescriptions: New oxycodone 5 mg Tablet 5 mg PO Q4H PRN PRN (Reason: pain 5-10) 7 Days Qty: 28 0RF meloxicam 7.5 mg Tablet 7.5 mg PO BID 30 Days Qty: 60 0RF aspirin 81 mg Tablet,Chewable 81 mg PO BID 28 Days Qty: 56 0RF acetaminophen 500 mg Tablet 1,000 mg PO Q8 30 Days Qty: 180 0RF Continued glipizide 2.5 mg tablet extended release 24hr 2.5 mg PO DAILY lisinopril 10 mg tablet 10 mg PO DAILY calcium carbonate-vitamin D3 [Calcium 600 + D(3)] 600 mg-5 mcg (200 unit) tablet 1 tab PO BID folic acid 400 mcg tablet 400 mcg PO DAILY omega 9-ecn-bch-fish oil-krill [MegaRed Advanced 4-in-1] 339 mg-314 mg- 500 mg capsule 1 cap PO DAILY coenzyme Q10 [Co Q-10] 200 mg capsule 200 mg PO DAILY cinnamon bark [Cinnamon] 500 mg capsule 1,000 mg PO BID Other Ambulatory Orders: 12 Lead EKG (Routine) Timeframe: [id number] Location: None Selected Ordered By: Dr. Anirudh Givens Referrals / Follow Up: Radha Plunkett MD [Primary Care Provider] - Anirudh Givens DO [Med Staff - Active Staff] - Within 2 Weeks Disposition Disposition (needs filled in before D/C Order can be placed): [facility] Health [facility]
--- NOTE | 2023-09-30 12:20 | PCM.DC ---
Discharge Instructions Follow Up Care Test Results: Test results from this visit will be discussed in further detail at your follow-up appointment, if applicable. Discharge Plan Admission Admit Date/Time: 09/28/23 14:07 Primary Reason for Your Visit: Right total hip arthroplasty Attending Provider: Anirudh Givens Primary Care Provider: Radha Plunkett Consulting Providers: Walker Gipson; Josr Araiza Instructions Additional Instructions / Restrictions: Follow preprinted instructions from your surgeon's office Discharge Orders/Prescriptions Prescriptions: New oxycodone 5 mg Tablet 5 mg PO Q4H PRN PRN (Reason: pain 5-10) 7 Days Qty: 28 0RF meloxicam 7.5 mg Tablet 7.5 mg PO BID 30 Days Qty: 60 0RF aspirin 81 mg Tablet,Chewable 81 mg PO BID 28 Days Qty: 56 0RF acetaminophen 500 mg Tablet 1,000 mg PO Q8 30 Days Qty: 180 0RF Continued glipizide 2.5 mg tablet extended release 24hr 2.5 mg PO DAILY lisinopril 10 mg tablet 10 mg PO DAILY calcium carbonate-vitamin D3 [Calcium 600 + D(3)] 600 mg-5 mcg (200 unit) tablet 1 tab PO BID folic acid 400 mcg tablet 400 mcg PO DAILY omega 8-hqq-nay-fish oil-krill [MegaRed Advanced 4-in-1] 339 mg-314 mg- 500 mg capsule 1 cap PO DAILY coenzyme Q10 [Co Q-10] 200 mg capsule 200 mg PO DAILY cinnamon bark [Cinnamon] 500 mg capsule 1,000 mg PO BID Other Ambulatory Orders: 12 Lead EKG (Routine) Timeframe: [id number] Location: None Selected Ordered By: Dr. Anirudh Givens Referrals / Follow Up: Radha Plunkett MD [Primary Care Provider] - Anirudh Givens DO [Med Staff - Active Staff] - Within 2 Weeks Disposition Disposition (needs filled in before D/C Order can be placed): Home Health Service
[2023-09-30 12:24] LABS: Bedside Glucose 193 mg/dL (74-106)
== END 2023-09-30 13:52 | disposition home health service (06) ==
LOC: SDC 14:33 → MS3 14:33
PROVIDERS: Anesthesiology; Admitting Provider Student in an Organized Health Care Education/Training Program; PCP Family Medicine; Referring Provider Family Medicine; Visit Provider Student in an Organized Health Care Education/Training Program
PROC: 0SR90JZ Replacement of Right Hip Joint with Synthetic Substitute, Open Approach (ICD-10-PCS; CPT 27130; principal; 2023-09-28 13:40)
DX: M16.11 Unilateral primary osteoarthritis, right hip (principal); E11.9 Type 2 diabetes mellitus without complications; K57.90 Diverticulosis of intestine, part unspecified, without perforation or abscess without bleeding; R19.7 Diarrhea, unspecified; Z79.84 Long term (current) use of oral hypoglycemic drugs; I10 Essential (primary) hypertension; Z79.899 Other long term (current) drug therapy
CPT/HCPCS: 27130; S2900; 01214; 36415; 73502; 80048; 82040; 82962; 83036; 83735; 85025; 85027; 87081; 88305; 88311; 93005; 94668; 96365; 96366; 96375; 96376; 97162; 97166; 97530; 97535; 99221; C1776; J7120; A4216; G0378; J2405; J3475